=== PATIENT | male | born 1955 | race Caucasian/White ===

== ENCOUNTER 2023-07-29 07:44 | Outpatient (AMB) | payer BC, SELFPAY ==
--- NOTE | 2023-07-29 08:14 | MHC.OFFVIS ---
Vital Signs 07/29/23 08:15 Height 5 ft 7.5 in Weight 188 lb 8 oz BMI 29.1 BP 112/70 Blood Pressure Location Rt brachial Position Sitting Respiration 16 Pulse 64 Pulse Source Pulse Oximeter Pulse Oximetry (%) 98 Oxygen Delivery Method Room Air Intake Visit Reasons: ENP-Muscle pain/weakness/nerve pain - Confirmed Intake Note: Pt presents for new pt evaluation for muscle weakness and joint pain for 4 years. These have worsened over the last year. He describes as electrical shocks . Skin Toggler Required: No Allergies No Known Allergies Allergy (Verified 07/29/23 08:14) Medication List - Last Reconciled 07/29/23 by Lanette Sanchez MD esomeprazole magnesium DR (Nexium Packet) 20 mg PO DAILY lisinopril 10 mg PO DAILY HPI Comments Details: 67y/o male comes for evaluation of pain , cramps and abnormal sensation in his legs and hands started about 4 years ago and has worsened significantly . It started as a mild ache but now it is pain and tingling , spasm , cramps.He says he feels like he to stretch it out . Its in both LE and uE. He also reports waking up with numbness tingling in hands . He is not clear if its worse at rest or with activity.He is not clear if its mostly in the evenings. He had carpal tunnel surgeries 2019 and he had repeat EMG at [facility] 02/09 - showed mild johnny carpal tunnel. He denies back pain. He reports neck pain on his left. He was diagnosed with rheumatoid arthritis 6 years ago and follows up with Dr. Hwang.He wakes up often with leg cramps and jerks. He was diagnosed with sleep apnea 2 year ago and could not tolerate CPAP. ( Sleep medicine services) [facility] Medical History (Updated 07/29/23 @ 09:04 by Lanette Sanchez MD) Muscle cramp Tingling Obstructive sleep apnea of adult Hepatitis Prediabetes HTN (hypertension) Barretts esophagus GERD (gastroesophageal reflux disease) Surgical History (Updated 07/29/23 @ 08:19 by Anuradha Saleem CMA) Hx of cholecystectomy History of carpal tunnel surgery Family History (Updated 07/29/23 @ 08:20 by Anuradha Saleem CMA) Father No problems noted. Mother No problems noted. Social History (Updated 07/29/23 @ 08:21 by Anuradha Saleem CMA) Household Members: Spouse Housing: House Alcohol intake: never Patient Tobacco Use Status: Never used Tobacco Physical Exam Vital Signs: Last Vital Signs Pulse 64 07/29/23 08:15 Resp 16 07/29/23 08:15 BP 112/70 07/29/23 08:15 Pulse Ox 98 07/29/23 08:15 Oxygen Delivery Method Room Air 07/29/23 08:15 BMI result Body Mass Index 29.1 Const General: cooperative, healthy appearing and comfortable Nutritional Appearance: average body habitus Orientation/consciousness: patient oriented x3 Eyes Pupils: Equal, round and reactive pupils present Neck Neck: Yes no meningeal signs Neuro General: patient oriented x3, gait normal, tone normal, moves all extremities, no meningeal signs and no focal motor deficits Cranial nerves: Yes Facial sensation intact/muscles of mastication intact, Yes Equal, round and reactive pupils present, Yes Bilaterally intact EOM present, Yes Nystagmus not present, Yes Normal facial strength present, Yes Midline tongue present and Yes Symmetric palate elevation present Cognition (Neuro): normal cognition Gait exam (Neuro): Normal gait present Motor exam (neuro): 5/5 motor strength present throughout and Normal motor muscle tone present throughout Deep tendon reflexes (DTR's): Right triceps reflex intensity grade: 1+, Left triceps reflex intensity grade: 1+, Rt Biceps (C5, C6): 1+, Left biceps reflex intensity grade: 1+, Right brachioradialis reflex intensity grade: 1+, Left brachioradialis reflex intensity grade: 1+ and Right patellar reflex intensity grade: 1+ Coordination: [id number] test normal Assessment & Plan Assessment & Plan (1) Tingling: Comment: / Neuropathy ? restless legs ? PLMD Code(s): R20.2 - Paresthesia of skin Category: Medical (2) Muscle cramp: Code(s): R25.2 - Cramp and spasm Category: Medical (3) Obstructive sleep apnea of adult: Code(s): G47.33 - Obstructive sleep apnea (adult) (pediatric) Category: Medical Plan SLeep study report for review I will trail him on gabapentin 300mg qhs Magnesium 400mg qhs Labs- B12, TSH ESR CK ferritin Vit D EMG LE Orders: Orders NE nerve conduction velocity Today R20.2 - Paresthesia of skin Vitamin D 25-OH (D2 and D3) Today G47.33 - Obstructive sleep apnea (adult) (pediatric), R20.2 - Paresthesia of skin Erythrocyte Sedimentation Rate Today G47.33 - Obstructive sleep apnea (adult) (pediatric), R20.2 - Paresthesia of skin Ferritin Today G47.33 - Obstructive sleep apnea (adult) (pediatric), R20.2 - Paresthesia of skin NE electromyogram (EMG) Today R20.2 - Paresthesia of skin Vitamin B12 and Folate Today G47.33 - Obstructive sleep apnea (adult) (pediatric), R20.2 - Paresthesia of skin TSH reflex Free T4 Today G47.33 - Obstructive sleep apnea (adult) (pediatric), R20.2 - Paresthesia of skin CK, Total+Isoenzymes, Serum Today G47.33 - Obstructive sleep apnea (adult) (pediatric), R20.2 - Paresthesia of skin Medications: New magnesium glycinate (Mag Glycinate) 400 mg (4 x 100 mg) PO BEDTIME 120 tabs 6RF gabapentin 300 mg (3 x 100 mg) PO BEDTIME 90 caps 6RF Coding Level of Care Code New Pt Level 4 (54407) Diagnoses Tingling R20.2 Muscle cramp R25.2 Obstructive sleep apnea of adult G47.33
[2023-07-29 08:15] VITALS: BP 112/70; PULSE 64; RESP 16; O2SAT 98; BMI 29.1
== END 2023-07-29 08:59 | disposition home or self-care (01) ==
PROVIDERS: PCP Internal Medicine; Visit Provider Psychiatry & Neurology Neurology
DX: R20.2 Paresthesia of skin (principal); R25.2 Cramp and spasm; G47.33 Obstructive sleep apnea (adult) (pediatric)
CPT/HCPCS: 99204

== ENCOUNTER → 2023-07-29 07:44 | Outpatient (BNVA) | payer BC, SELFPAY | PROVIDERS: PCP Internal Medicine; Visit Provider Psychiatry & Neurology Neurology ==

== ENCOUNTER 2023-07-30 08:02 | Outpatient (REF) | payer BC, SELFPAY ==
[2023-07-30 18:52] LABS: Erythrocyte Sedimentation Rate 9 MM/HR (0-15)
[2023-07-30 19:17] LABS: Ferritin 205 ng/mL (20-250); TSH reflex Free T4 1.42 uIU/mL (0.32-4.0)
[2023-07-30 19:24] LABS: Folate 9.7 ng/mL (> or = 4.0); Vitamin B12 434 pg/mL (200-900)
[2023-08-03 22:33] LABS: CK-BB None Detected (None Detected); CK-MB 0 % (<5); CK-MM 100 % (95-100); Creatine Kinase,Total,Serum 133 U/L (44-196)
[2023-08-06 13:32] LABS: Vitamin D 25-OH, D2 <4 ng/mL; Vitamin D 25-OH, D3 39 ng/mL; Vitamin D 25-OH, Total 39 ng/mL (30-100)
== END 2023-07-30 08:03 | disposition home or self-care (01) ==
LOC: HO.HKASLDS 08:02
PROVIDERS: Visit Provider Psychiatry & Neurology Neurology
DX: G47.33 Obstructive sleep apnea (adult) (pediatric) (principal); R20.2 Paresthesia of skin
CPT/HCPCS: 36415; 82306; 82552; 82607; 82728; 82746; 84443; 85652

== ENCOUNTER 2023-07-31 14:49 | Outpatient (REF) | payer BC, SELFPAY ==
--- NOTE | 2023-07-31 15:02 | EMG_ITS ---
Chief complaint: A few years of random sharp pains along the knees, down the leg, to the toes on the right Denies any back pain per se. No weakness or atrophy. Reason for referral: Evaluate for neuropathy Referred by: Dr. Sanchez Procedure done: Bilateral lower extremity NCS/EMG Precautions and/or limitations: None The limb temperature was monitored continuously and remained between 32-36 degrees C during the performance of the NCS. Nerve Conduction Studies Anti Sensory Summary Table ?Stim Site NR Onset (ms) Norm Onset (ms) Peak (ms) Norm Peak (ms) O-P Amp (?V) Norm O-P Amp Site1 Site2 Delta-0 (ms) Dist (cm) Tony (m/s) Norm Tony (m/s) Left Sural Anti Sensory (Lat Mall) Calf ? 1.9 3.0 <4.0 12.2 >5.0 Calf Lat Mall 1.9 14.0 74 Right Sural Anti Sensory (Lat Mall) Calf ? 2.0 3.2 <4.0 6.8 >5.0 Calf Lat Mall 2.0 14.0 70 Motor Summary Table ?Stim Site NR Onset (ms) Norm Onset (ms) O-P Amp (mV) Norm O-P Amp iAmp (mV) Amp (1st) (%) Site1 Site2 Delta-0 (ms) Dist (cm) Tony (m/s) Norm Tony (m/s) Left Peroneal Motor (Ext Dig Brev) Ankle ? 5.0 <4.0 3.7 >2.5 4.5 100.0 Ankle Ext Dig Brev 5.0 0.0 B Fib ? 12.1 3.0 3.7 81.1 B Fib Ankle 7.1 31.5 44 >40 Poplt ? 13.3 3.0 3.7 81.1 Poplt B Fib 1.2 6.0 50 >40 Right Peroneal Motor Run #2 (Ext Dig Brev) Ankle ? 5.5 <4.0 0.5 >2.5 0.5 100.0 Ankle Ext Dig Brev 5.5 0.0 B Fib ? 13.8 0.5 0.5 100.0 B Fib Ankle 8.3 35.0 42 >40 Poplt ? 11.6 1.3 2.1 260.0 Poplt B Fib 2.2 5.0 23 >40 Left Tibial Motor (Abd Palacios Brev) Ankle ? 4.1 <5 11.7 >2.5 16.8 100.0 Ankle Abd Palacios Brev 4.1 0.0 Knee ? 13.8 3.3 4.5 28.2 Knee Ankle 9.7 39.0 40 >40 Right Tibial Motor (Abd Palacios Brev) Ankle ? 3.4 <5 8.8 >2.5 11.2 100.0 Ankle Abd Palacios Brev 3.4 0.0 Knee ? 11.6 3.5 4.6 39.8 Knee Ankle 8.2 40.0 49 >40 EMG ?Side Muscle Nerve Root Ins Act Fibs Psw Amp Dur Poly Recrt Int Pat Comment Right AbdHallucis MedPlantar S1-2 Nml Nml Nml Nml Nml 0 Nml Complete Right AntTibialis Dp Br Peron L4-5 Nml Nml Nml Nml Nml 0 Nml Complete Right MedGastroc Tibial S1-2 Nml Nml Nml Nml Nml 0 Nml Complete Right VastusMed Femoral L2-4 Nml Nml Nml Nml Nml 0 Nml Complete Right Peroneus Long Sup Br Peron L5-S1 Nml Nml Nml Nml Nml 0 Nml Complete Left AbdHallucis MedPlantar S1-2 Nml Nml Nml Nml Nml 0 Nml Complete Left AntTibialis Dp Br Peron L4-5 Nml Nml Nml Nml Nml 0 Nml Complete Left MedGastroc Tibial S1-2 Nml Nml Nml Nml Nml 0 Nml Complete Left VastusMed Femoral L2-4 Nml Nml Nml Nml Nml 0 Nml Complete Paraspinal EMG ?Side Muscle Nerve Root Ins Act Fibs Psw Comment Right Lumbar Upper Rami Nml Nml Nml Right Lumbar Mid Rami Nml Nml Nml Right Lumbar Lower Rami Nml Nml Nml Left Lumbar Upper Rami Nml Nml Nml Left Lumbar Mid Rami Nml Nml Nml Left Lumbar Lower Rami Nml Nml Nml FINDINGS: Right peroneal nerve showed prolonged distal latency, small amplitude and slow conduction velocity. Left peroneal nerve showed prolonged distal latency, normal amplitude and normal conduction velocity. All other nerves tested were within normal. Concentric needle EMG was performed in selected muscles of the bilateral lower extremity and lumbar paraspinal. Study did not reveal signs of electric abnormalities as shown in the table above. IMPRESSION: 1. This is an abnormal study. 2. 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 3. There is no electrodiagnostic evidence for tibial neuropathy. lumbosacral plexopathy, lumbar radiculopathy, peripheral neuropathy. Thank you for your kind referral. Breana Adams MD, JESENIA Board Certified, [place] [employer] and [employer] (ABPMR) Board Certified, [place] Board of Electrodiagnostic Medicine (ABEM) CODIN 04895 x 2 MTDD
== END 2023-07-31 14:50 | disposition home or self-care (01) ==
LOC: HO.NEURO 14:49
PROVIDERS: PCP Internal Medicine; Visit Provider Psychiatry & Neurology Neurology
DX: R20.2 Paresthesia of skin (principal)
CPT/HCPCS: 95886; 95909

== ENCOUNTER → 2023-07-31 15:02 | Outpatient (BNV) | payer BC, SELFPAY | PROVIDERS: PCP Internal Medicine; Visit Provider Physical Medicine & Rehabilitation | DX: R20.2 Paresthesia of skin (principal) | CPT/HCPCS: 95885; 95886; 95909 ==

== ENCOUNTER 2023-12-17 07:26 | Outpatient (AMB) | payer BC, SELFPAY ==
[2023-12-17 07:29] VITALS: BP 115/70; PULSE 66; O2SAT 97; BMI 29.7
--- NOTE | 2023-12-17 07:29 | A.OFFVIS_ITS ---
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 He says his hands feel like they are frozen and stiff when he wakes up in the morning and they get better after a few hours. He has pain in his ankles that radiates up the calves, and takes advil as needed. He wakes up every night 2-3 times, feels fatigued in the mornings and unable to complete his daily tasks. He is unable to sleep on his left side due to the pain and uses a pillow. He is not able to tolerate his CPAP. He stopped taking his Gabapentin in August 2023, it was making him feel like he was not himself . [facility] Medical History (Updated 12/17/23 @ 08:21 by Lanette Sanchez MD) Hypersomnia Snoring Muscle cramp Tingling Obstructive sleep apnea of adult Hepatitis Prediabetes HTN (hypertension) Barretts esophagus GERD (gastroesophageal reflux disease) Surgical History Hx of cholecystectomy History of carpal tunnel surgery Family History Father No problems noted. Mother No problems noted. Social History Household Members: Spouse Housing: House Alcohol intake: never Patient Tobacco Use Status: Never used Tobacco Review of Systems Const Reports as per HPI, Reports snoring and Reports weakness (Unable to turn knobs and open doors hands feel frozen.) Resp Reports snoring GI Details: Wakes up gasping and coughing in the middle of the night. Neuro Reports weakness (Unable to turn knobs and open doors hands feel frozen.) Psych Reports depression (Feels depressed because he is unable to do things as he used to.) Physical Exam Vital Signs: Last Vital Signs Pulse 66 12/17/23 07:29 BP 115/70 12/17/23 07:29 Pulse Ox 97 12/17/23 07:29 Oxygen Delivery Method Room Air 12/17/23 07:29 BMI result Body Mass Index 29.7 Const General: cooperative and comfortable Nutritional Appearance: average body habitus Orientation/consciousness: patient oriented x3 Limitations: no limitations HEENT Head: Yes normal to inspection Eyes Pupils: Equal, round and reactive pupils present and Pupils normal by confrontation Direct Ophthalmoscopy: normal light reflex Neck Neck: Yes normal visual inspection and Yes full ROM Resp Effort & Inspection: normal respiratory effort and able to speak in complete sentences Neuro General: patient oriented x3, moves all extremities and CN's II-XI intact bilaterally Cranial nerves: Yes Equal, round and reactive pupils present, Yes Ability to bilaterally rotate head present and Yes Ability to bilaterally elevate shoulders present Cognition (Neuro): normal cognition Gait exam (Neuro): Normal gait present Motor exam (neuro): Normal motor muscle tone present throughout Deep tendon reflexes (DTR's): Right triceps reflex intensity grade: 2+, Left triceps reflex intensity grade: 2+, Rt Biceps (C5, C6): 2+, Left biceps reflex intensity grade: 2+, Right brachioradialis reflex intensity grade: 2+, Left brachioradialis reflex intensity grade: 2+, Right patellar reflex intensity grade: 2+, Left patellar reflex intensity grade: 2+, Right ankle reflex intensity grade: 2+ and Left ankle reflex intensity grade: 2+ Coordination: [id number] test normal Psych Appearance: grossly normal Affect: normal affect Attitude: cooperative Thought content: Normal thought content present Insight: Good insight present (Psych) Assessment & Plan Assessment & Plan (1) Snoring: Code(s): R06.83 - Snoring Category: Medical Plan: Night time arousals due to JOHN Repeat Home Sleep Study Follow up with Rheumatology Orders: Orders RT home sleep study 12/17/23 G47.10 - Hypersomnia, unspecified, G47.33 - Obstructive sleep apnea (adult) (pediatric), R06.83 - Snoring Coding Level of Care Code Est Pt Level 4 (33043) Complex EM visit Add On G2211 Diagnoses Snoring R06.83
== END 2023-12-17 08:27 | disposition home or self-care (01) ==
LOC: HO.HSMS 07:27
PROVIDERS: PCP Internal Medicine; Visit Provider Psychiatry & Neurology Neurology
DX: R06.83 Snoring (principal)
CPT/HCPCS: 99214

== ENCOUNTER → 2023-12-17 07:26 | Outpatient (BNVA) | payer BC, SELFPAY | PROVIDERS: PCP Internal Medicine; Visit Provider Psychiatry & Neurology Neurology | DX: R20.2 Paresthesia of skin (principal); G47.33 Obstructive sleep apnea (adult) (pediatric) ==

== ENCOUNTER → 2024-02-05 12:26 | Outpatient (REF) | payer BC, SELFPAY ==
--- OUTSIDE RECORDS SUMMARY | 2024-02-05 12:28 | XMS_ITS ---
Author Organization [facility] Address [address] [place] [address] Care Team Providers Care Remotely Piloted Vehicle Controller Name Role Phone Irineo Winn [phone] ALLERGIES, ADVERSE REACTIONS, ALERTS None MEDICATIONS Medication Code Code System Start Date Stop Date Route Dosage Directions Fill Instructions gabapentin RxNorm lisinopril RxNorm benzonatate 492661 RxNorm 08/15/2023 oral 1 PROBLEMS Problem Name Code Code System Start Date End Date Stat Other specified arthritis, unspecified site 5729871 [facility] Active Essential (primary) hypertension 64346021 [facility] Active Acute pharyngitis, unspecified 096804197 [facility] 08/15/2023 Active Acute cough 27411652 [facility] 08/15/2023 Active ENCOUNTERS Encounter Diagnosis Code Code System Date Stat Acute pharyngitis, unspecified 762169290 [facility] 2023 Active Acute cough 25021866 [facility] 08/15/2023 Active IMMUNIZATIONS * None VITAL SIGNS Code Code System Vitals Name Date Value and Un its 8462-4 [facility] Blood Pressure-Diastolic 08/15/2023 45 mmHg 8480-6 [facility] Blood Pressure-Systolic 08/15/2023 1 32 mmHg 8867-4 [facility] Heart Rate 08/15/2023 86 /min 9279-1 [facility] Respiratory Rate 08/15/2023 18 /min 8310-5 [facility] Body Temperature 08/15/2023 99.1 F 25060-5 [facility] Oxygen Saturation 08/15/2023 96 % SOCIAL HISTORY * None PROCEDURES * None RESULTS Test Code Code System Description Result Value Date Ref erence Range [facility] Strep A Not Detected 08/15/2023 Not Det ected [facility] SARS-CoV-2 Not Detected 08/15/2023 Not De tected [facility] Flu A Not Detected 08/15/2023 Not Det ected [facility] Flu B Not Detected 08/15/2023 Not Det ected MEDICAL EQUIPMENT * Patient has no history of implantable devices ASSESSMENT Assessment You have an upper respirator y infection.This is an infection involving the nose, throat and larynx, almost always caused by a virus. The infection rarely spreads or leads to serious long-term problems. Since the infection is caused by a virus, antibiotics are not helpful.It may help your symptoms to use a decongestant nose spray to open the nasal passages and permit drainage. Afrin nasal spray (or a similar decongestant spray) can be used twice a day for up to four days. You may develop tolerance to it if used longer than this.You may take Tylenol 650mg orally every 6 hoursOver the counter Flonase nasal spray can help with any congestion/sinus pressure. With time this can also help alleviate ear pressure that occurs as a result of the congestion.Over the counter [place] Mist Nasal Saline can be used a few times daily to help irrigate the nose/sinuses to help with congestion.Warm tea with honey can help the throat and cough.Return or get rechecked by your doctor if you get high or prolonged fever (over 101 F orally), worsening pain, swelling over your face or eyes, earache, shortness of breath or chest pain, severe headache, stiff neck, vomiting, or a rash.If you are not improving after 10 days of illness you should be re-evaluate. Respiratory tract infections are usually spread by coughing; the virus lands on surfaces and is then picked up on the hands and carried to the nose or mouth - so good hand washing is important to avoid spreading the virus. TREATMENT PLAN Type Description Date MEDICATION Take 08/15/2023 APPOINTMENT If not feeling chris r in 3 day(s), please see your primary care physician. If you do not have a primary care physician, please return to this clinic. 08/15/2023 Labs Tests Test Name Code Code System Date Syl/Cepheid SARS-CoV-2 & Fl u A/B Multiplex Assay, Amplified Probe Molecular RT-PCR / NAAT [id number] [facility] 08/15/2023 Syl/Cepheid Strep A, DNA, Amplified Probe PCR [id number] [facility] 08/15/2023 GOALS * None HEALTH CONCERNS * No Health Concerns FUNCTIONAL AND COGNITIVE STATUS * None CONSULTATION NOTES * None DISCHARGE SUMMARY NOTES * None HISTORY AND PHYSICAL NOTES * None IMAGING NOTES * /Eastern History: Sore throat-Neck: The patient presents with a chief complaint of sore throat of the neck since Sat, Aug 10, 2023. It has the following qualities: scratchy and difficulty swallowing. The patient describes the severity as 10/10, with 10 being the worst imaginable. The patient also reports chills, congestion, cough, fever, headache, nasal discharge, shortness of breath, sweats, nasal congestion, and aches/pains as abnormal symptoms related to the complaint.ExaminationDescription: Chest xray, frontal and lateral viewsComparisons:None provided. FindingsLungs and airways: Clear lungs. Perih ilar bronchial wall thickening.Pleura: No evidence of pneumothorax or pleural effusion.Mediastinum:Cardiomediastinal silhouette is within normal limits.Bones and soft tissues: No evidence of acute pathology of the visualized portions.IMPRESSION:1. No evidence of consolidation or other acute cardiop ulmonary pathology.2. Perihilar bronchial wall thickening, suggesting bronchiolitis (likely viral etiology), versus reactive airway disease, which may be correlated clinically. LABORATORY REPORT NARRATIVE NOTES * None PATHOLOGY REPORT NARRATIVE NOTES * None PROGRESS NOTES * None
== END ==
LOC: HO.SL 12:26
PROVIDERS: PCP Internal Medicine; Visit Provider Psychiatry & Neurology Neurology
DX: G47.33 Obstructive sleep apnea (adult) (pediatric) (principal); G47.10 Hypersomnia, unspecified; R06.83 Snoring
CPT/HCPCS: 95806

== ENCOUNTER → 2024-02-05 12:41 | Outpatient (BNV) | payer BC, SELFPAY | PROVIDERS: PCP Internal Medicine; Visit Provider Psychiatry & Neurology Neurology | DX: R06.83 Snoring (principal); G47.10 Hypersomnia, unspecified | CPT/HCPCS: 95806 ==

== ENCOUNTER → 2024-03-24 20:30 | Outpatient (REF) | payer BC, SELFPAY | LOC: HO.SL 20:30 | PROVIDERS: PCP Internal Medicine; Visit Provider Psychiatry & Neurology Neurology | DX: G47.10 Hypersomnia, unspecified (principal); R06.83 Snoring | CPT/HCPCS: 95810 ==

== ENCOUNTER → 2024-03-24 20:55 | Outpatient (BNV) | payer BC, SELFPAY | PROVIDERS: PCP Internal Medicine; Visit Provider Psychiatry & Neurology Neurology | DX: G47.33 Obstructive sleep apnea (adult) (pediatric) (principal) | CPT/HCPCS: 95810 ==